=== PATIENT | female | born 1965 | race Caucasian/White ===

== ENCOUNTER 2019-01-28 09:15 | Emergency (ER) | payer OTHER ==
[~2019-01-28 09:15] MED LIST: ALBU2.5V8 INH; LEVO175T2; PRED50TA PO; THYR30TA
--- NOTE | 2019-01-28 09:31 | PHYS DOC ---
Past History Past Medical History: Hypothyroid Past Surgical History: No Surgical History Alcohol Use: None Drug Use: None Adult General Chief Complaint Chief Complaint: LOWEREXTREMITY INJURY HPI HPI Patient is a 53-year-old female who presents to the emergency department for evaluation of left knee pain. She states she tripped and fell yesterday, and initially was able to walk on her knee but has had increasing pain since then, especially overnight, although this morning the pain has gradually improved somewhat. She denies any other injuries, numbness, weakness. Ambulation and flex ion and extension of her knee are painful. She denies any other painful areas. Review of Systems Review of Systems Constitutional: Denies fever or chills [] Respiratory: Denies cough or shortness of breath [] Musculoskeletal: Denies back pain or joint pain, other than the left knee [] Integument: Denies rash or skin lesions [] Neurologic: Denies headache, focal weakness or sensory changes [] Allergies Allergies Allergies Coded Allergies Type Severity Reaction Last Updated Verified No Known Drug Allergies 04/17/13 No Physical Exam Physical Exam PHYSICAL EXAM: HEENT: Atruamatic NECK: Supple, normal ROM, non-tender. CARDIAC: Regular Rate and Rhythm LUNGS: Clear Bilaterally EXTREMITIES: There is tenderness to palpation to the left knee, there is a mild joint effusion present. Flexion and extension are present, but limited to about 80 of full, secondary to pain. There is no ligamentous laxity to anterior, posterior, medial, or lateral stress, but there is pain on stress of the anterior cruciate ligament, and medial collateral ligament. Distal PMS are intact. The remainder the extremities are atraumatic. EKG EKG [] Radiology/Procedures Radiology/Procedures ER physician preliminary x-ray interpretation: There is a calcification at the superior aspect of the patella, favored to represent a calcification of the quadriceps tendon as opposed to an avulsion fracture although that is not excluded. No other fracture or abnormality is noted. Course & Med Decision Making Course & Med Decision Making I discussed the diagnosis and x-ray results with the patient, the use of knee immobilizer, the need for close outpatient orthopedic follow-up, and return precautions. Dragon Disclaimer Dragon Disclaimer This electronic medical record was generated, in whole or in part, using a voice recognition dictation system. Departure Departure: Impression: Primary Impression: Internal derangement of knee Disposition: HOME, SELF-CARE Condition: STABLE Referrals: SYLVIA,SOPHIA M PA (PCP) Patient Instructions: Knee Immobilizer, [id number], Knee Sprain Additional Instructions: Applying ice to the affected area may help improve your symptoms. Tylenol and/or Motrin as needed for pain. Follow-up with orthopedics at [facility]. Please call [phone]. JAYDON BELLO MD Jan 28, 2019 09:30
[2019-01-28] MEDS ORDERED: ACETAMINOPHEN 325 MG TABLET PO ONE (09:45)
--- NOTE | 2019-01-28 10:26 | RAD ---
EXAM: 3 views left knee DATE: 01/28/2019 9:25 AM INDICATION: Fall, knee pain COMPARISON: No Prior FINDINGS/ IMPRESSION: No joint effusion. No evidence of acute fracture or dislocation. Patellar enthesopathy. Electronically signed by: Onur Smart MD (01/28/2019 10:23 AM) [id number]
[2019-01-28 10:45] VITALS: BP 118/63
== END 2019-01-28 11:01 | disposition home or self-care (01) ==
LOC: ER 09:15
DX: M23.92 Unspecified internal derangement of left knee (principal); E03.9 Hypothyroidism, unspecified; W18.09XA Striking against other object with subsequent fall, initial encounter; Y93.89 Activity, other specified; Y92.89 Other specified places as the place of occurrence of the external cause; Y99.8 Other external cause status
CPT/HCPCS: 29505; 73562; 99284